=== PATIENT | female | born 1955 | race Caucasian/White ===

== ENCOUNTER → 2017-02-19 | Outpatient (CLI) | payer SELFPAY ==
[2017-02-19 09:16] LABS: ALANINE AMINOTRANSFERASE 36 U/L (9-52); ALBUMIN 4.1 g/dL (3.5-5.0); ALKALINE PHOSPHATASE 52 U/L (38-126); ANION GAP 8 (5-19); ASPARTATE AMINO TRANSFERASE 13 U/L (14-36); BILIRUBIN,DIRECT 0.4 mg/dL (0.0-0.4); BLOOD UREA NITROGEN 35 mg/dL (7-20); CALCIUM 9.3 mg/dL (8.4-10.2); CARBON DIOXIDE 28 mmol/L (22-30); CHLORIDE 105 mmol/L (98-107); CHOLESTEROL 172.06 mg/dL (0-200); CREATININE RESULT 1.31 mg/dL (0.52-1.25); Direct HDL 50 mg/dL (>40); GLUCOSE 165 mg/dL (75-110); POTASSIUM 5.5 mmol/L (3.6-5.0); SODIUM 140.8 mmol/L (137-145); TRIGLYCERIDES 163 mg/dL (<150)
[2017-02-19 09:27] LABS: DIRECT LDL 90 mg/dL (<100)
[2017-02-19 09:31] LABS: VLDL CHOLESTEROL 32.6 mg/dL (10-31)
== END ==
LOC: CCC 08:34
DX: E11.8 Type 2 diabetes mellitus with unspecified complications (principal)
CPT/HCPCS: 36415; 80053; 80061; 83036; 84443

== ENCOUNTER 2017-12-01 10:15 | Emergency (ER) | payer SELFPAY ==
[2017-12-01 10:25] VITALS: BP 147/83
[2017-12-01 10:55] LABS: APPEARANCE,URINE CLOUDY; BILIRUBIN,URINE NEGATIVE (NEGATIVE); GLUCOSE, URINE NEGATIVE (NEGATIVE); KETONES,URINE NEGATIVE (NEGATIVE); LEUKOCYTE ESTERASE,URINE LARGE (NEGATIVE); NITRITE,URINE NEGATIVE (NEGATIVE); PROTEIN,URINE 100 mg/dL (NEGATIVE); URINE SPECIFIC GRAVITY 1.018
[2017-12-01 10:56] LABS: COLOR,URINE YELLOW
[2017-12-01] MEDS ORDERED: CEFTRIAXONE INJ 1000 MG VIAL IM ONE (11:07)
[2017-12-01] MEDS ORDERED: CEPHALEXIN 500 MG CAPSULE PO ONE (11:07)
[2017-12-01] MEDS ORDERED: LIDOCAINE 1% INJ-PF (10 MG/ML) 30 ML SDV INFIL ONE (11:07)
--- NOTE | 2017-12-01 11:12 | ER Document Report ---
ED General - General Chief Complaint: Abdominal Pain >50 Stated Complaint: ABDOMINAL PAIN Time Seen by Provider: 12/01/17 10:59 TRAVEL OUTSIDE OF THE [place] 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 Patient otherwise is resting comfortably. 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 Denies any recent antibiotics. - Related Data Allergies/Adverse Reactions: No Known Allergies Allergy (Verified 12/01/17 10:20) Past Medical History - Social History Smoking Status: Former Smoker Frequency of alcohol use: Occasional Drug Abuse: None Family History: Reviewed & Not Pertinent Patient has suicidal ideation: No Patient has homicidal ideation: No - Past Medical History Cardiac Medical History: Reports: Hx Hypercholesterolemia, Hx Hypertension Denies: Hx Coronary Artery Disease Endocrine Medical History: Reports: Hx Diabetes Mellitus Type 2 Renal/ Medical History: Denies: Hx Peritoneal Dialysis Past Surgical History: Reports: Hx Section - x2, Hx Kidney (Renal Surgery) - Right nephrectomy for ruptured renal cyst - Immunizations Hx Diphtheria, Pertussis, Tetanus Vaccination: Yes Review of Systems - Review of Systems Constitutional: No symptoms reported EENT: No symptoms reported Cardiovascular: No symptoms reported Respiratory: No symptoms reported Gastrointestinal: No symptoms reported Genitourinary: Flank pain Female Genitourinary: No symptoms reported Musculoskeletal: No symptoms reported Skin: No symptoms reported Hematologic/Lymphatic: No symptoms reported Neurological/Psychological: No symptoms reported -: Yes All other systems reviewed and negative Physical Exam - Vital signs Vitals: Temp Pulse Resp BP Pulse Ox 98.5 F 79 18 147/83 H 96 12/01/17 10:24 12/01/17 10:24 12/01/17 10:24 12/01/17 10:24 12/01/17 10:24 Interpretation: Normal - General General appearance: Appears well, Alert - HEENT Head: Normocephalic, Atraumatic Eyes: Normal Pupils: PERRL - Respiratory Respiratory status: No respiratory distress Chest status: Nontender Breath sounds: Normal Chest palpation: Normal - Cardiovascular Rhythm: Regular Heart sounds: Normal auscultation Murmur: No - Abdominal Inspection: Normal Distension: No distension Bowel sounds: Normal Tenderness: Nontender Organomegaly: No organomegaly - Back Back: Normal, Nontender. No: CVA tenderness - Extremities General upper extremity: Normal inspection, Nontender, Normal color, Normal ROM , Normal temperature General lower extremity: Normal inspection, Nontender, Normal color, Normal ROM , Normal temperature, Normal weight bearing. No: Jessica's sign - Neurological Neuro grossly intact: Yes Cognition: Normal Orientation: AAOx4 [place] Coma Scale Eye Opening: Spontaneous [place] Coma Scale Verbal: Oriented [place] Coma Scale Motor: Obeys Commands [place] Coma Scale Total: 15 Speech: Normal Motor strength normal: LUE, RUE, LLE, RLE Sensory: Normal - Psychological Associated symptoms: Normal affect, Normal mood - Skin Skin Temperature: Warm Skin Moisture: Dry Skin Color: Normal Course - Re-evaluation Re-evalutation: 12/01/17 11:12 Left flank pain on examination urinalysis that showed a urinary tract infection with UTI. Treatment plan will consist of a dose of IM Rocephin along with p.o. Keflex. Urine culture will be sent. - Vital Signs Vital signs: Temp Pulse Resp BP Pulse Ox 98.5 F 79 18 147/83 H 96 12/01/17 10:24 12/01/17 10:24 12/01/17 10:24 12/01/17 10:24 12/01/17 10:24 - Laboratory Laboratory results interpreted by me: 12/01/17 10:30 Urine Protein 100 H Urine Blood LARGE H Urine Urobilinogen 2.0 H Ur Leukocyte Esterase LARGE H Discharge - Discharge Clinical Impression: UTI (urinary tract infection) Qualifiers: Urinary tract infection type: acute cystitis Hematuria presence: with hematuria Qualified Code(s): N30.01 - Acute cystitis with hematuria Diarrhea Qualifiers: Diarrhea type: unspecified type Qualified Code(s): R19.7 - Diarrhea, unspecified Condition: Good Disposition: HOME, SELF-CARE Instructions: Urinary Tract Infection ([facility]), Cephalexin ([facility]), Diarrhea, Nonspecific ([facility]) Additional Instructions: Follow-up with your primary care physician return to ER symptoms worsen take medications as prescribed. Take the Zofran is provided for any nausea that she may have for your diarrhea and increasing the amount of yogurt/ fiber in her diet. Prescriptions: Cephalexin Monohydrate [Keflex 500 mg Capsule] 500 mg PO QID 10 Days #20 capsule Referrals: [facility] [Primary Care Provider] - Follow up as needed
== END 2017-12-01 13:00 | disposition home or self-care (01) ==
LOC: ER 10:15
DX: N30.01 Acute cystitis with hematuria (principal); R19.7 Diarrhea, unspecified; R10.30 Lower abdominal pain, unspecified; E78.00 Pure hypercholesterolemia, unspecified; I10 Essential (primary) hypertension; E11.9 Type 2 diabetes mellitus without complications; Z90.5 Acquired absence of kidney
CPT/HCPCS: 99284; 96372; 81001; J3490; J0696

== ENCOUNTER 2017-12-24 21:37 | Emergency (ER) | payer SELFPAY ==
[2017-12-24] MEDS ORDERED: HYDROCODONE/ACETAMINOPHEN 7.5-325 MG TABLET PO ONE (23:30)
[2017-12-24] MEDS ORDERED: SULFAMETHOXAZOLE/TRIMETHOPRIM 800-160 MG TABLET PO ONE (23:30)
--- NOTE | 2017-12-24 23:45 | ER Document Report ---
ED Skin Rash/Insect Bite/Abscs - General Chief Complaint: Cyst Stated Complaint: SKIN PROBLEM Time Seen by Provider: 12/24/17 22:56 Mode of Arrival: Ambulatory Information source: Patient Notes: Patient has a draining abscess on her upper back. She said her primary doctor wants to send her to a surgeon to get it excised. TRAVEL OUTSIDE OF THE [place] IN LAST 30 DAYS: No - HPI Patient complains to provider of: Skin rash/lesion Onset: Other - 2 days Onset/Duration: Gradual Quality of pain: No pain Severity: Mild Pain Level: 1 Skin Character: Abscess Skin Temperature: Warm Identify cause: No Exacerbated by: Denies Relieved by: Denies Similar symptoms previously: Yes Recently seen / treated by doctor: Yes - Related Data Allergies/Adverse Reactions: No Known Allergies Allergy (Verified 12/24/17 23:22) Past Medical History - Social History Smoking Status: Never Smoker Chew tobacco use (# tins/day): No Frequency of alcohol use: None Drug Abuse: None Family History: Reviewed & Not Pertinent Patient has suicidal ideation: No Patient has homicidal ideation: No - Past Medical History Cardiac Medical History: Reports: Hx Hypercholesterolemia, Hx Hypertension Denies: Hx Coronary Artery Disease Endocrine Medical History: Reports: Hx Diabetes Mellitus Type 2 Renal/ Medical History: Denies: Hx Peritoneal Dialysis Past Surgical History: Reports: Hx Section - x2, Hx Kidney (Renal Surgery) - Right nephrectomy for ruptured renal cyst - Immunizations Hx Diphtheria, Pertussis, Tetanus Vaccination: Yes Review of Systems - Review of Systems Constitutional: No symptoms reported EENT: No symptoms reported Cardiovascular: No symptoms reported Respiratory: No symptoms reported Gastrointestinal: No symptoms reported Genitourinary: No symptoms reported Female Genitourinary: No symptoms reported Musculoskeletal: No symptoms reported Skin: Other - Draining abscess Hematologic/Lymphatic: No symptoms reported Neurological/Psychological: No symptoms reported -: Yes All other systems reviewed and negative Physical Exam - Vital signs Vitals: Temp Pulse Resp BP Pulse Ox 98.5 F 80 16 154/91 H 94 12/24/17 21:43 12/24/17 21:43 12/24/17 21:43 12/24/17 21:43 12/24/17 21:43 Interpretation: Normal - General General appearance: Appears well, Alert In distress: None - HEENT Head: Normocephalic, Atraumatic Eyes: Normal Pupils: PERRL - Respiratory Respiratory status: No respiratory distress Chest status: Nontender Breath sounds: Normal Chest palpation: Normal - Cardiovascular Rhythm: Regular Heart sounds: Normal auscultation Murmur: No - Abdominal Inspection: Normal Distension: No distension Bowel sounds: Normal Tenderness: Nontender Organomegaly: No organomegaly - Back Back: Normal, Nontender - Extremities General upper extremity: Normal inspection, Nontender, Normal color, Normal ROM , Normal temperature General lower extremity: Normal inspection, Nontender, Normal color, Normal ROM , Normal temperature, Normal weight bearing. No: Jessica's sign - Neurological Neuro grossly intact: Yes Cognition: Normal Orientation: AAOx4 [place] Coma Scale Eye Opening: Spontaneous Jeannette Coma Scale Verbal: Oriented Je[place] Coma Scale Motor: Obeys Commands [place] Coma Scale Total: 15 Speech: Normal Motor strength normal: LUE, RUE, LLE, RLE Sensory: Normal - Psychological Associated symptoms: Normal affect, Normal mood - Skin Skin Temperature: Warm Skin Moisture: Dry Skin Color: Normal Notes: There is a draining abscess on the thoracic portion of the spine with surrounding erythema consistent with cellulitis. There is no collection noted at this time the abscess is already open and draining. Course - Vital Signs Vital signs: Temp Pulse Resp BP Pulse Ox 98.2 F 74 16 144/90 H 97 12/25/17 00:05 12/25/17 00:05 12/25/17 00:05 12/25/17 00:05 12/25/17 00:05 - Transfer of Care Notes: 12/24/17 23:43 Abscess draining. Cellulitis. Discharge - Discharge Clinical Impression: Cellulitis of back Cellulitis Qualifiers: Site of cellulitis: trunk Site of cellulitis of trunk: back Qualified Code(s): L03.312 - Cellulitis of back [any part except buttock] Condition: Stable Disposition: HOME, SELF-CARE Instructions: Cellulitis ([facility]) Additional Instructions: Please follow-up with your primary doctor tomorrow morning for referral to a surgeon of your choice for this is to be excised as an outpatient. You have been started on antibiotics and pain medicine please take your medications as prescribed. Return to the emergency room if your condition worsens. Prescriptions: Hydrocodone/Acetaminophen [[place] 7.5-325 mg Tablet] 1 tab PO BID PRN #15 tablet PRN Reason: Pain Scale Of 4 Ibuprofen 800 mg PO TID PRN #20 tablet PRN Reason: Pain Scale Of 2 Ondansetron [Zofran Odt 4 mg Tablet] 1 - 2 tab PO Q6H PRN #20 tab.rapdis PRN Reason: For Nausea/Vomiting Sulfamethoxazole/Trimethoprim [Bactrim Ds Tablet] 2 each PO BID #40 tablet Forms: Return to Work Referrals: VIKAS GALARZA MD [Primary Care Provider] - Follow up as needed
[2017-12-25 00:13] VITALS: BP 144/90
== END 2017-12-25 00:05 | disposition home or self-care (01) ==
LOC: ER 21:37
DX: L02.212 Cutaneous abscess of back [any part, except buttock and flank] (principal); L03.312 Cellulitis of back [any part except buttock and flank]; R21 Rash and other nonspecific skin eruption; I10 Essential (primary) hypertension; E11.9 Type 2 diabetes mellitus without complications
CPT/HCPCS: 87070; 87075; 87186; 87205; 99283

== ENCOUNTER → 2018-03-19 | Outpatient (CLI) | payer SELFPAY ==
[2018-03-19 08:48] LABS: ANION GAP 6 (5-19); BLOOD UREA NITROGEN 20 mg/dL (7-20); CARBON DIOXIDE 27 mmol/L (22-30); CHLORIDE 106 mmol/L (98-107); GLUCOSE 229 mg/dL (75-110); POTASSIUM 5.2 mmol/L (3.6-5.0); SODIUM 138.9 mmol/L (137-145)
[2018-03-20 11:41] LABS: CREATININE URINE 147.9 mg/dL (Not Estab.); MICROALBUMIN URINE 19.3 ug/mL (Not Estab.)
[2018-03-22 18:26] LABS: URINE CREATININE 112.4 mg/dL (15-278)
[2018-03-22 18:32] LABS: 24 HR URINE CREAT RESULT 1.6 mg/day (0.8-2.0)
== END ==
LOC: CCC 07:50
DX: E11.8 Type 2 diabetes mellitus with unspecified complications (principal); I10 Essential (primary) hypertension
CPT/HCPCS: 36415; 80048; 82043; 82570

== ENCOUNTER 2018-04-25 19:58 | Inpatient (IN) | payer OTHER ==
[2018-04-25] MEDS ORDERED: IPRATROPIUM/ALBUTEROL 0.5-2.5 MG/3 ML AMPUL NEB ONE (20:31)
[2018-04-25] MEDS ORDERED: CARVEDILOL 12.5 MG TABLET PO ONE (20:31)
--- NOTE | 2018-04-25 20:37 | ER Document Report ---
ED Flu Like - General Chief Complaint: Flu Symptoms Stated Complaint: POSSIBLE FLU Time Seen by Provider: 04/25/18 20:22 Primary Care Provider: [facility] [Primary Care Provider] - Follow up as needed TRAVEL OUTSIDE OF THE [place] IN LAST 30 DAYS: No - HPI Notes: Patient is a 63-year-old female that presents to the emergency department for chief complaint of flulike symptoms. Patient reports 5 days of sinus congestion, cough, body aches, malaise and fevers. She has been taking [id number] cold medications and decongestants with no relief. She did not get a influenza vaccine this year. She states she is becoming more short of breath. She denies any associated chest pain, palpitations and lightheadedness. Patient has taken her morning medications today but not her evening medications. Her cold medicine did include decongestants. Patient denies any nausea, vomiting and abdominal pain. Past Medical History: Diabetes, hypertension Past Surgical History: x2 Social History: Denies tobacco, alcohol, and drug use Family History: Reviewed and noncontributory for presenting illness Allergies: Reviewed, see documented allergy list. REVIEW OF SYSTEMS: CONSTITUTIONAL : fever chills diaphoresis No recent illness EENT: No vision changes congestion No sore throat CARDIOVASCULAR: No chest pain No palpitations RESPIRATORY: shortness of breath cough difficulty breathing GASTROINTESTINAL: No abdominal pain No nausea No vomiting No diarrhea GENITOURINARY: No dysuria No hematuria No difficulty urinating MUSCULOSKELETAL: No back pain Diffuse myalgias SKIN: No rashes No lesions LYMPHATIC: No swollen, enlarged glands. NEUROLOGICAL: No lightheadedness No headache No weakness No paresthesias PSYCHIATRIC: No anxiety No depression PHYSICAL EXAMINATION: Vital signs reviewed, nursing noted reviewed. GENERAL: Ill-appearing, obese and in no acute distress. HEAD: Atraumatic, normocephalic. EYES: Eyes appear normal, extraocular movements intact, sclera anicteric, conjunctiva are normal. ENT: nares patent, oropharynx clear without exudates. Mildly dry mucous membranes. NECK: Normal range of motion, supple without lymphadenopathy LUNGS: Breath sounds diminished with left basilar end expiratory wheezing to auscultation. No accessory muscle use. Mild tachypnea. HEART: Regular rate and rhythm without murmurs ABDOMEN: Soft, nontender, normoactive bowel sounds. No rebound, guarding, or rigidity. No masses appreciated. EXTREMITIES: Nontender, good range of motion, no pitting or edema. NEUROLOGICAL: No focal neurological deficits. Moves all extremities spontaneousl y Motor and sensory grossly intact on exam. PSYCH: Normal mood, normal affect. SKIN: Warm, Dry, normal turgor, no rashes or lesions noted on exposed skin - Related Data Allergies/Adverse Reactions: No Known Allergies Allergy (Verified 12/24/17 23:22) Past Medical History - Social History Smoking Status: Never Smoker Family History: Reviewed & Not Pertinent - Past Medical History Cardiac Medical History: Reports: Hx Hypercholesterolemia, Hx Hypertension Denies: Hx Coronary Artery Disease Endocrine Medical History: Reports: Hx Diabetes Mellitus Type 2 Renal/ Medical History: Denies: Hx Peritoneal Dialysis Past Surgical History: Reports: Hx Section - x2, Hx Kidney (Renal Surgery) - Right nephrectomy for ruptured renal cyst - Immunizations Hx Diphtheria, Pertussis, Tetanus Vaccination: Yes Physical Exam - Vital signs Vitals: Temp Pulse Resp BP Pulse Ox 99.1 F 86 21 H 170/117 H 92 04/25/18 20:12 04/25/18 20:12 04/25/18 20:12 04/25/18 20:12 04/25/18 20:12 Course - Re-evaluation Re-evalutation: 04/25/18 20:37 Vitals reviewed. Nursing notes reviewed. Patient was oxygenating at 90% on room air and was mildly tachypneic with no accessory muscle use. She was placed on 2 L nasal cannula and given DuoNeb for her shortness of breath. Patient was hypertensive likely related to not taking her evening blood pressure medications and use of [id number]-[id number] decongestants. She will be given her home evening carvedilol dose now. 04/25/18 22:12 Patient reevaluated after aerosols and states she feels significantly better. Her breathing has improved and she is no longer tachypneic. Patient's blood pressure has also improved after her night medications and she is now 197/90. Patient has been on 2 L nasal cannula for oxygen saturation in the low 90s. She will be ambulated on room air to further assess her oxygen requirement. Laboratory 04/25/18 04/25/18 04/25/18 20:35 20:35 20:35 WBC 3.8 L RBC 4.33 Hgb 13.2 Hct 38.6 MCV 89 MCH 30.4 MCHC 34.1 RDW 13.4 Plt Count 194 Seg Neutrophils % 70.0 Lymphocytes % 17.1 Monocytes % 8.1 Eosinophils % 4.4 Basophils % 0.4 Absolute Neutrophils 2.7 Absolute Lymphocytes 0.7 Absolute Monocytes 0.3 Absolute Eosinophils 0.2 Absolute Basophils 0.0 Sodium 141.1 Potassium 5.1 H Chloride 105 Carbon Dioxide 26 Anion Gap 10 BUN 23 H Creatinine 0.92 Est GFR ( Amer) > 60 Est GFR (Non-Af Amer) > 60 Glucose 249 H Calcium 9.1 Total Bilirubin 1.2 Direct Bilirubin 0.5 H Neonat Total Bilirubin Not Reportable Neonat Direct Bilirubin Not Reportable Neonat Indirect Bili Not Reportable AST 21 ALT 18 Alkaline Phosphatase 80 Troponin I < 0.012 Total Protein 7.0 Albumin 4.1 Influenza A (Rapid) Influenza B (Rapid) 04/25/18 21:00 WBC RBC Hgb Hct MCV MCH MCHC RDW Plt Count Seg Neutrophils % Lymphocytes % Monocytes % Eosinophils % Basophils % Absolute Neutrophils Absolute Lymphocytes Absolute Monocytes Absolute Eosinophils Absolute Basophils Sodium Potassium Chloride Carbon Dioxide Anion Gap BUN Creatinine Est GFR ( Amer) Est GFR (Non-Af Amer) Glucose Calcium Total Bilirubin Direct Bilirubin Neonat Total Bilirubin Neonat Direct Bilirubin Neonat Indirect Bili AST ALT Alkaline Phosphatase Troponin I Total Protein Albumin Influenza A (Rapid) NEGATIVE Influenza B (Rapid) NEGATIVE 04/25/18 22:24 When patient was ambulated on room air the highest pulse ox she had was 88%. She got as low as 85%. Patient did become significantly dyspneic. When she sat down and was placed back on 2 L nasal cannula she quickly improved to an oxygen saturation of 95%. Patient is requiring oxygen and will be admitted to the hospital for antibiotics and further monitoring of her acute community-acquired pneumonia. Patient's case discussed with Dr. Osei who has accepted admission. - Vital Signs Vital signs: Temp Pulse Resp BP Pulse Ox 99.1 F 86 20 191/84 H 96 04/25/18 20:12 04/25/18 20:12 04/25/18 21:56 04/25/18 21:56 04/25/18 21:56 - Laboratory Result Diagrams: 04/25/18 20:35 04/25/18 20:35 Laboratory results interpreted by me: 04/25/18 04/25/18 20:35 20:35 WBC 3.8 L Potassium 5.1 H BUN 23 H Glucose 249 H Direct Bilirubin 0.5 H - Diagnostic Test Radiology reviewed: Image reviewed, Reports reviewed - EKG Interpretation by Me Additional EKG results interpreted by me: 04/25/18 20:42 Interpreted by myself 2038: Normal sinus rhythm, rate 85, normal axis, no ectopy, no significant change compared to 09/07/14 Discharge - Discharge Clinical Impression: Community acquired pneumonia of right lower lobe of lung, Hypoxia Condition: Stable Disposition: ADMITTED INPATIENT Admitting Provider: Hospitalist Unit Admitted: Telemetry Referrals: [facility] [Primary Care Provider] - Follow up as needed
[2018-04-25 20:47] LABS: ABSOLUTE EOSINOPHILS # (AUTO) 0.2 10^3/uL (0.0-0.6); ABSOLUTE LYMPHOCYTES (AUTO) 0.7 10^3/uL (0.5-4.7); ABSOLUTE MONOCYTES (AUTO) 0.3 10^3/uL (0.1-1.4); ABSOLUTE NEUT (AUTO) 2.7 10^3/uL (1.7-8.2); BASOPHILS % (AUTO) 0.4 % (0-2); EOSINOPHILS % (AUTO) 4.4 % (0-6); HEMATOCRIT 38.6 % (36.0-47.0); HEMOGLOBIN 13.2 g/dL (12.0-15.5); LYMPHOCYTES % (AUTO) 17.1 % (13-45); MEAN CORPUSCULAR HEMOGLOBIN 30.4 pg (27.0-33.4); MEAN CORPUSCULAR HGB CONC 34.1 g/dL (32.0-36.0); MEAN CORPUSCULAR VOLUME 89 fl (80-97); MONOCYTES % (AUTO) 8.1 % (3-13); PLATELET COUNT 194 10^3/uL (150-450); RED BLOOD COUNT 4.33 10^6/uL (3.72-5.28); RED CELL DISTRIBUTION WIDTH 13.4 % (11.5-14.0); TOTAL CELLS COUNTED % (AUTO) 100 %; WHITE BLOOD COUNT 3.8 10^3/uL (4.0-10.5)
[2018-04-25 21:03] LABS: ALANINE AMINOTRANSFERASE 18 U/L (9-52); ALBUMIN 4.1 g/dL (3.5-5.0); ALKALINE PHOSPHATASE 80 U/L (38-126); ANION GAP 10 (5-19); ASPARTATE AMINO TRANSFERASE 21 U/L (14-36); BILIRUBIN,DIRECT 0.5 mg/dL (0.0-0.4); BILIRUBIN,TOTAL 1.2 mg/dL (0.2-1.3); BLOOD UREA NITROGEN 23 mg/dL (7-20); CALCIUM 9.1 mg/dL (8.4-10.2); CARBON DIOXIDE 26 mmol/L (22-30); CHLORIDE 105 mmol/L (98-107); GLUCOSE 249 mg/dL (75-110); POTASSIUM 5.1 mmol/L (3.6-5.0); SODIUM 141.1 mmol/L (137-145)
[2018-04-25 21:22] LABS: A TYPE INFLUENZA AG NEGATIVE (NEGATIVE); B INFLUENZA AG NEGATIVE (NEGATIVE)
--- NOTE | 2018-04-25 21:27 | RADIOLOGY REPORT (SQ) ---
XR CHEST 1 VIEW HISTORY: COUGH. COMPARISON: None. FINDINGS: The heart size is normal. There is a patchy opacity in the right lower lung zone. No pleural effusions or pneumothorax is seen. No acute bony findings. IMPRESSION: Right lower lung zone patchy opacity consistent with pneumonia.
[2018-04-25] MEDS ORDERED: CARVEDILOL 6.25 MG TABLET ONE (21:35)
[2018-04-25] MEDS ORDERED: AZITHROMYCIN 250 MG TABLET PO ONE (22:08)
[2018-04-25] MEDS ORDERED: CEFTRIAXONE INJ 1000 MG VIAL IV ONE (22:20)
[2018-04-25] MEDS ORDERED: AZITHROMYCIN INJ 500 MG VIAL IV ONE (22:20)
[2018-04-25] MEDS ORDERED: LACTULOSE SYRUP 20 GM/30 ML UDCUP PO ONE (22:24)
[2018-04-25] MEDS ORDERED: FUROSEMIDE INJ/PF 40 MG/4 ML SDV IV ONE (22:24)
[2018-04-25] MEDS ORDERED: CHLORPHENIRAMINE MALEATE 4 MG TABLET PO ONE (22:25)
[2018-04-25] MEDS ORDERED: DEXTROSE 50%-WATER 25 GM/50 ML DISP.SYRIN IV PRN ×2 (22:26)
[2018-04-25] MEDS ORDERED: DEXTROSE 40% GEL 15 GM TUBE PO PRN ×2 (22:26)
[2018-04-25] MEDS ORDERED: GLUCAGON,HUMAN RECOMB 1 MG INJ IM PRN (22:26)
[2018-04-25] MEDS ORDERED: IPRATROPIUM/ALBUTEROL 0.5-2.5 MG/3 ML AMPUL NEB PRN (22:27)
[2018-04-25] MEDS ORDERED: GUAIFENESIN SYRP 200 MG/10 ML UDC PO PRN (22:27)
[2018-04-25] MEDS ORDERED: INSULIN LISPRO 100 UNIT/ML 3 ML VIAL SUBCUT ONE (22:45)
[2018-04-25] MEDS ORDERED: LEVOFLOXACIN 750 MG/D5W RTU 750 MG/150 ML RTUPB IV ONE (23:00)
[2018-04-26] MEDS: HYDRALAZINE HCL INJ/PF 20 MG/1 ML SDV IV PRN ×2 (00:05→07:59)
[2018-04-26] MEDS: ACETAMINOPHEN 325 MG TABLET PO PRN ×3 (02:05→21:29)
[2018-04-26] MEDS ORDERED: CHLORPHENIRAMINE MALEATE 4 MG TABLET ONE (02:18)
[2018-04-26] MEDS: IPRATROPIUM/ALBUTEROL 0.5-2.5 MG/3 ML AMPUL NEB SCH ×4 (02:49→19:30)
[2018-04-26 05:07] LABS: ABSOLUTE EOSINOPHILS # (AUTO) 0.1 10^3/uL (0.0-0.6); ABSOLUTE LYMPHOCYTES (AUTO) 0.7 10^3/uL (0.5-4.7); ABSOLUTE MONOCYTES (AUTO) 0.3 10^3/uL (0.1-1.4); ABSOLUTE NEUT (AUTO) 2.6 10^3/uL (1.7-8.2); BASOPHILS % (AUTO) 0.4 % (0-2); EOSINOPHILS % (AUTO) 2.1 % (0-6); HEMOGLOBIN 12.5 g/dL (12.0-15.5); LYMPHOCYTES % (AUTO) 18.9 % (13-45); MEAN CORPUSCULAR HEMOGLOBIN 30.2 pg (27.0-33.4); MEAN CORPUSCULAR HGB CONC 33.9 g/dL (32.0-36.0); MEAN CORPUSCULAR VOLUME 89 fl (80-97); MONOCYTES % (AUTO) 8.2 % (3-13); PLATELET COUNT 187 10^3/uL (150-450); RED BLOOD COUNT 4.14 10^6/uL (3.72-5.28); RED CELL DISTRIBUTION WIDTH 13.3 % (11.5-14.0); SEGMENTED NEUTROPHILS % (AUTO) 70.4 % (42-78); TOTAL CELLS COUNTED % (AUTO) 100 %; WHITE BLOOD COUNT 3.7 10^3/uL (4.0-10.5)
[2018-04-26 05:19] LABS: ANION GAP 13 (5-19); BLOOD UREA NITROGEN 23 mg/dL (7-20); CALCIUM 9.1 mg/dL (8.4-10.2); CARBON DIOXIDE 25 mmol/L (22-30); CHLORIDE 101 mmol/L (98-107); GLUCOSE 308 mg/dL (75-110); POTASSIUM 4.6 mmol/L (3.6-5.0); SODIUM 139.3 mmol/L (137-145)
--- NOTE | 2018-04-26 05:24 | PDOC H&P ---
History of Present Illness Admission Date/PCP: 04/25/18 22:42 [facility] Patient complains of: Flulike symptoms History of Present Illness: RUDDY RIBEIRO is a 63 year old female with a past medical history of hypertension, diabetes and morbid obesity. She presents with 5 days of flulike symptoms with rhinorrhea, sore throat, subjective fever, shortness of breath and productive cough. She has taken several wjnn-ihy-wrrssbt preparations including pseudoephedrine without significant improvement prompting evaluation in the emergency department where she is found to have a right lower lung infiltrate and uncontrolled blood pressure of 190/115. Influenza is negative. She started on empiric antibiotics and referred to the hospitalist for admission. Patient denies recent change in medications other than above or infectious contacts. Past Medical History Cardiac Medical History: Reports: Hyperlipidema, Hypertension Denies: Coronary Artery Disease Endocrine Medical History: Reports: Diabetes Mellitus Type 2, Obesity Psychiatric Medical History: Denies: Alcohol Dependency, Depression, Tobacco Dependency Past Surgical History Past Surgical History: Reports: Section - x2 Social History Information Source: Patient Smoking Status: Former Smoker Cigarettes Packs Per Day: 1 Frequency of Alcohol Use: None Hx Recreational Drug Use: No Drugs: None Hx Prescription Drug Abuse: No - Advance Directive Resuscitation Status: Full Code Family History Family History: Hypertension Parental Family History Reviewed: Yes Children Family History Reviewed: Yes Sibling(s) Family History Reviewed.: Yes Medication/Allergy Home Medications: Ibuprofen 800 mg PO TID PRN #20 tablet 12/24/17 Carvedilol 25 mg PO BID 04/26/18 Gabapentin [Neurontin 300 mg Capsule] 300 mg PO TID 04/26/18 Hum Insulin NPH/Reg Insulin Hm [Insulin Inj 70-30 (100 Unit/1 ml) 3 ml Vial] 25 unit SUBCUT BID 04/26/18 Levothyroxine Sodium [Synthroid 0.05 mg Tablet] 50 mcg PO DAILY 04/26/18 Lisinopril 20 mg PO BID 04/26/18 Metformin HCl 500 mg PO BID 04/26/18 Allergies/Adverse Reactions: No Known Allergies Allergy (Verified 12/24/17 23:22) Review of Systems Constitutional: ABSENT: chills, fever(s), headache(s), weight gain, weight loss Eyes: ABSENT: visual disturbances Ears: ABSENT: hearing changes Cardiovascular: ABSENT: chest pain, dyspnea on exertion, edema, orthropnea, palpitations Respiratory: ABSENT: cough, hemoptysis Gastrointestinal: ABSENT: abdominal pain, constipation, diarrhea, hematemesis, hematochezia, nausea, vomiting Genitourinary: ABSENT: dysuria, hematuria Musculoskeletal: ABSENT: joint swelling Integumentary: ABSENT: rash, wounds Neurological: ABSENT: abnormal gait, abnormal speech, confusion, dizziness, focal weakness, syncope Psychiatric: ABSENT: anxiety, depression, homidical ideation, suicidal ideation Endocrine: ABSENT: cold intolerance, heat intolerance, polydipsia, polyuria Hematologic/Lymphatic: ABSENT: easy bleeding, easy bruising Physical Exam Vital Signs: Temp Pulse Resp BP Pulse Ox 98.2 F 85 24 H 142/79 H 96 04/26/18 03:54 04/26/18 03:54 04/26/18 03:54 04/26/18 03:54 04/26/18 03:54 Intake & Output 04/24/18 04/25/18 04/26/18 11:59 11:59 11:59 Intake Total 150 Balance 150 Weight 141.6 kg General appearance: PRESENT: cooperative, mild distress, morbidly obese. ABSENT: disheveled Head exam: PRESENT: atraumatic, normocephalic Eye exam: PRESENT: conjunctiva pink, EOMI, PERRLA. ABSENT: scleral icterus Ear exam: PRESENT: normal external ear exam Mouth exam: PRESENT: moist, tongue midline Neck exam: ABSENT: carotid bruit, JVD, lymphadenopathy, thyromegaly Respiratory exam: PRESENT: accessory muscle use, crackles, prolonged expiratory phas, rales, retraction, symmetrical, tachypnea, wheezes Cardiovascular exam: PRESENT: RRR, tachycardia. ABSENT: diastolic murmur, rubs, systolic murmur Pulses: PRESENT: normal dorsalis pedis pul Vascular exam: PRESENT: normal capillary refill GI/Abdominal exam: PRESENT: normal bowel sounds, soft. ABSENT: distended, guarding, mass, organolmegaly, rebound, tenderness Rectal exam: PRESENT: deferred Extremities exam: PRESENT: full ROM. ABSENT: calf tenderness, clubbing, pedal edema Neurological exam: PRESENT: alert, awake, oriented to person, oriented to place, oriented to time, oriented to situation, CN II-XII grossly intact. ABSENT: motor sensory deficit Psychiatric exam: PRESENT: appropriate affect, normal mood. ABSENT: homicidal ideation, suicidal ideation Skin exam: PRESENT: dry, intact, warm. ABSENT: cyanosis, rash Results Laboratory Results: 04/26/18 04:07 04/25/18 04/25/18 04/25/18 20:35 20:35 23:00 WBC 3.8 L RBC 4.33 Hgb 13.2 Hct 38.6 MCV 89 MCH 30.4 MCHC 34.1 RDW 13.4 Plt Count 194 Seg Neutrophils % 70.0 Lymphocytes % 17.1 Monocytes % 8.1 Eosinophils % 4.4 Basophils % 0.4 Absolute Neutrophils 2.7 Absolute Lymphocytes 0.7 Absolute Monocytes 0.3 Absolute Eosinophils 0.2 Absolute Basophils 0.0 Sodium 141.1 Potassium 5.1 H Chloride 105 Carbon Dioxide 26 Anion Gap 10 BUN 23 H Creatinine 0.92 Est GFR ( Amer) > 60 Est GFR (Non-Af Amer) > 60 Glucose 249 H Lactic Acid 1.0 Calcium 9.1 Total Bilirubin 1.2 AST 21 ALT 18 Alkaline Phosphatase 80 Total Protein 7.0 Albumin 4.1 04/26/18 04:07 WBC 3.7 L RBC 4.14 Hgb 12.5 Hct 37.0 MCV 89 MCH 30.2 MCHC 33.9 RDW 13.3 Plt Count 187 Seg Neutrophils % 70.4 Lymphocytes % 18.9 Monocytes % 8.2 Eosinophils % 2.1 Basophils % 0.4 Absolute Neutrophils 2.6 Absolute Lymphocytes 0.7 Absolute Monocytes 0.3 Absolute Eosinophils 0.1 Absolute Basophils 0.0 Sodium Potassium Chloride Carbon Dioxide Anion Gap BUN Creatinine Est GFR ( Amer) Est GFR (Non-Af Amer) Glucose Lactic Acid Calcium Total Bilirubin AST ALT Alkaline Phosphatase Total Protein Albumin 04/25/18 04/25/18 20:35 20:35 Troponin I < 0.012 NT-Pro-B Natriuret Pep 308 Assessment & Plan - Diagnosis (1) Community acquired pneumonia of right lower lobe of lung Is this a current diagnosis for this admission?: Yes Plan: Pneumonia care set deployed, empiric antibiotics initiated, flutter valve, incentive spirometry and BiPAP as needed. Follow-up CBC and blood culture (2) Hypertension Is this a current diagnosis for this admission?: Yes Plan: Complicated by pseudoephedrine use, follow-up BNP, home regiment initiated PRN hydralazine (3) Hypoxia Is this a current diagnosis for this admission?: Yes Plan: Supplemental oxygen, albuterol and Atrovent, BiPAP as needed (4) Diabetes Is this a current diagnosis for this admission?: Yes Plan: Medication reconciliation pending, Humalog sliding scale ordered. - Time Time Spent: 50 to 70 Minutes - Inpatient Certification Medical Necessity: Need Close Monitoring Due to Risk of Patient Decompensation
[2018-04-26] MEDS: HEPARIN SOD (PORCINE) 5,000 UNIT/ML 1 ML SYRINGE SUBCUT SCH ×3 (05:33→21:29)
[2018-04-26] MEDS: INSULIN LISPRO 100 UNIT/ML 3 ML VIAL SUBCUT SCH ×3 (08:01→17:05)
[2018-04-26] MEDS: GABAPENTIN 300 MG CAPSULE PO SCH ×3 (09:45→17:05)
[2018-04-26] MEDS: CARVEDILOL 12.5 MG TABLET PO SCH ×2 (09:45→21:29)
[2018-04-26] MEDS: LISINOPRIL 10 MG TABLET PO SCH ×2 (09:45→21:30)
[2018-04-26] MEDS: HUM INSULIN NPH/REG INSULIN HM 100 UNIT/1 ML 3 ML SUBCUT SCH ×2 (09:46→17:05)
[2018-04-26] MEDS: FLUTICASONE NASAL SPRAY 50 MCG/SPRY 120 SPRAY/16 GM NASL SCH ×2 (09:49→21:29)
[2018-04-26] MEDS ORDERED: LEVOTHYROXINE SODIUM 0.05 MG TABLET PO SCH (10:00)
--- NOTE | 2018-04-26 13:07 | EKG REPORT ---
SEVERITY:- NORMAL ECG - SINUS RHYTHM : Confirmed by: Chely Al MD 26-Apr-2018 13:07:12
--- NOTE | 2018-04-26 16:03 | PDOC PROGRESS REPORT ---
Subjective Progress Note for:: 04/26/18 Subjective:: RUDDY RIBEIRO is a 63 year old female with a past medical history of hypertension, diabetes and morbid obesity who presented with rhinorrhea, sore throat, subjective fever, shortness of breath and productive cough. She was found to have right lower lobe pneumonia and was initially hypoxic which resolved with 2L of NC in the ER. No acute event overnight. She says she still has SOB today but this has improved today. She is saturating well on 2 lpm via NC. She denies chest pain. Reason For Visit: PNEUMONIA Physical Exam Vital Signs: Temp Pulse Resp BP Pulse Ox 97.7 F 89 18 122/93 H 97 04/26/18 11:08 04/26/18 14:37 04/26/18 14:37 04/26/18 11:08 04/26/18 14:37 Intake & Output 04/25/18 04/26/18 04/27/18 06:59 06:59 06:59 Intake Total 550 418 Balance 550 418 Weight 308 lb 6.827 oz General appearance: PRESENT: no acute distress, well-developed, well-nourished Head exam: PRESENT: atraumatic, normocephalic Eye exam: PRESENT: conjunctiva pink, EOMI, PERRLA. ABSENT: scleral icterus Ear exam: PRESENT: normal external ear exam Mouth exam: PRESENT: moist, tongue midline Neck exam: ABSENT: carotid bruit, JVD, lymphadenopathy, thyromegaly Respiratory exam: PRESENT: crackles - right base. ABSENT: rales, rhonchi, wheezes Cardiovascular exam: PRESENT: RRR. ABSENT: diastolic murmur, rubs, systolic murmur Pulses: PRESENT: normal dorsalis pedis pul GI/Abdominal exam: PRESENT: normal bowel sounds, soft. ABSENT: distended, guarding, mass, organolmegaly, rebound, tenderness Rectal exam: PRESENT: deferred Extremities exam: PRESENT: +1 edema Neurological exam: PRESENT: alert, awake, oriented to person, oriented to place, oriented to time, oriented to situation, CN II-XII grossly intact. ABSENT: motor sensory deficit Results Laboratory Results: 04/26/18 04:07 04/26/18 04:07 04/25/18 04/25/18 04/25/18 20:35 20:35 23:00 WBC 3.8 L RBC 4.33 Hgb 13.2 Hct 38.6 MCV 89 MCH 30.4 MCHC 34.1 RDW 13.4 Plt Count 194 Seg Neutrophils % 70.0 Lymphocytes % 17.1 Monocytes % 8.1 Eosinophils % 4.4 Basophils % 0.4 Absolute Neutrophils 2.7 Absolute Lymphocytes 0.7 Absolute Monocytes 0.3 Absolute Eosinophils 0.2 Absolute Basophils 0.0 Sodium 141.1 Potassium 5.1 H Chloride 105 Carbon Dioxide 26 Anion Gap 10 BUN 23 H Creatinine 0.92 Est GFR ( Amer) > 60 Est GFR (Non-Af Amer) > 60 Glucose 249 H Lactic Acid 1.0 Calcium 9.1 Total Bilirubin 1.2 AST 21 ALT 18 Alkaline Phosphatase 80 Total Protein 7.0 Albumin 4.1 04/26/18 04/26/18 04:07 04:07 WBC 3.7 L RBC 4.14 Hgb 12.5 Hct 37.0 MCV 89 MCH 30.2 MCHC 33.9 RDW 13.3 Plt Count 187 Seg Neutrophils % 70.4 Lymphocytes % 18.9 Monocytes % 8.2 Eosinophils % 2.1 Basophils % 0.4 Absolute Neutrophils 2.6 Absolute Lymphocytes 0.7 Absolute Monocytes 0.3 Absolute Eosinophils 0.1 Absolute Basophils 0.0 Sodium 139.3 Potassium 4.6 Chloride 101 Carbon Dioxide 25 Anion Gap 13 BUN 23 H Creatinine 0.91 Est GFR ( Amer) > 60 Est GFR (Non-Af Amer) > 60 Glucose 308 H Lactic Acid Calcium 9.1 Total Bilirubin AST ALT Alkaline Phosphatase Total Protein Albumin 04/25/18 04/25/18 20:35 20:35 Troponin I < 0.012 NT-Pro-B Natriuret Pep 308 Assessment & Plan - Diagnosis (1) Acute respiratory failure with hypoxia Is this a current diagnosis for this admission?: Yes Plan: Secondary to right lower lobe pneumonia. Saturating well on 2 lpm via NC. Will try to see if she can be weaned off O2. (2) Community acquired pneumonia of right lower lobe of lung Is this a current diagnosis for this admission?: Yes Plan: On Levaquin. Will order sputum culture as well. (3) Hypertension Is this a current diagnosis for this admission?: Yes Plan: Will resume Coreg and lisinopril. (4) IDDM (insulin dependent diabetes mellitus) Is this a current diagnosis for this admission?: Yes Plan: Continue 70/30 25 u bid. - Time Time Spent with patient: 25-34 minutes
[2018-04-26] MEDS: LEVOFLOXACIN 750 MG/D5W RTU 750 MG/150 ML RTUPB IV SCH (21:30)
[2018-04-27] MEDS: IPRATROPIUM/ALBUTEROL 0.5-2.5 MG/3 ML AMPUL NEB SCH ×4 (01:45→20:31)
[2018-04-27 05:02] LABS: ABSOLUTE EOSINOPHILS # (AUTO) 0.1 10^3/uL (0.0-0.6); ABSOLUTE LYMPHOCYTES (AUTO) 1.1 10^3/uL (0.5-4.7); ABSOLUTE MONOCYTES (AUTO) 0.4 10^3/uL (0.1-1.4); ABSOLUTE NEUT (AUTO) 2.1 10^3/uL (1.7-8.2); BASOPHILS % (AUTO) 0.4 % (0-2); EOSINOPHILS % (AUTO) 3.6 % (0-6); HEMATOCRIT 36.9 % (36.0-47.0); HEMOGLOBIN 12.6 g/dL (12.0-15.5); LYMPHOCYTES % (AUTO) 28.5 % (13-45); MEAN CORPUSCULAR HEMOGLOBIN 30.2 pg (27.0-33.4); MEAN CORPUSCULAR HGB CONC 34.1 g/dL (32.0-36.0); MEAN CORPUSCULAR VOLUME 89 fl (80-97); MONOCYTES % (AUTO) 10.8 % (3-13); PLATELET COUNT 183 10^3/uL (150-450); RED BLOOD COUNT 4.16 10^6/uL (3.72-5.28); SEGMENTED NEUTROPHILS % (AUTO) 56.7 % (42-78); TOTAL CELLS COUNTED % (AUTO) 100 %; WHITE BLOOD COUNT 3.8 10^3/uL (4.0-10.5)
[2018-04-27 05:25] LABS: ANION GAP 11 (5-19); BLOOD UREA NITROGEN 26 mg/dL (7-20); CALCIUM 8.9 mg/dL (8.4-10.2); CARBON DIOXIDE 27 mmol/L (22-30); CHLORIDE 102 mmol/L (98-107); GLUCOSE 192 mg/dL (75-110); POTASSIUM 4.8 mmol/L (3.6-5.0); SODIUM 139.6 mmol/L (137-145)
[2018-04-27] MEDS: HEPARIN SOD (PORCINE) 5,000 UNIT/ML 1 ML SYRINGE SUBCUT SCH ×3 (05:49→21:33)
[2018-04-27] MEDS: LEVOTHYROXINE SODIUM 0.05 MG TABLET PO SCH (05:49)
[2018-04-27] MEDS: INSULIN LISPRO 100 UNIT/ML 3 ML VIAL SUBCUT SCH ×3 (07:49→16:30)
[2018-04-27] MEDS: LISINOPRIL 10 MG TABLET PO SCH ×2 (10:51→21:33)
[2018-04-27] MEDS: GABAPENTIN 300 MG CAPSULE PO SCH ×3 (10:51→17:44)
[2018-04-27] MEDS: CARVEDILOL 12.5 MG TABLET PO SCH ×2 (10:51→21:33)
[2018-04-27] MEDS: HUM INSULIN NPH/REG INSULIN HM 100 UNIT/1 ML 3 ML SUBCUT SCH ×2 (10:52→17:44)
[2018-04-27] MEDS: FLUTICASONE NASAL SPRAY 50 MCG/SPRY 120 SPRAY/16 GM NASL SCH ×2 (10:52→21:33)
--- NOTE | 2018-04-27 12:30 | PDOC PROGRESS REPORT ---
Subjective Progress Note for:: 04/27/18 Subjective:: RUDDY RIBEIRO is a 63 year old female with a past medical history of hypertension, diabetes and morbid obesity who presented with rhinorrhea, sore throat, subjective fever, shortness of breath and productive cough. She was found to have right lower lobe pneumonia and was initially hypoxic which resolved with 2L of NC in the ER. 04/26: She says she still has SOB today but this has improved today. She is saturating well on 2 lpm via NC. She denies chest pain. 04/27: No acute event overnight. She says she continues to feel better and her SOB also continue to improve but not at her baseline yet. She is not on home O2. Patient ambulated and she desaturated to 85% and had mild SOB. Reason For Visit: PNEUMONIA Physical Exam Vital Signs: Temp Pulse Resp BP Pulse Ox 98.2 F 91 18 154/105 H 94 04/27/18 11:18 04/27/18 11:18 04/27/18 11:18 04/27/18 11:18 04/27/18 11:18 Intake & Output 04/26/18 04/27/18 04/28/18 06:59 06:59 06:59 Intake Total 550 1105 Balance 550 1105 Weight 308 lb 6.827 oz 307 lb 1.663 oz General appearance: PRESENT: no acute distress, well-developed, well-nourished Head exam: PRESENT: atraumatic, normocephalic Eye exam: PRESENT: conjunctiva pink, EOMI, PERRLA. ABSENT: scleral icterus Ear exam: PRESENT: normal external ear exam Mouth exam: PRESENT: moist, tongue midline Neck exam: ABSENT: carotid bruit, JVD, lymphadenopathy, thyromegaly Respiratory exam: PRESENT: rales - right base, rhonchi. ABSENT: wheezes Cardiovascular exam: PRESENT: RRR. ABSENT: diastolic murmur, rubs, systolic murmur Pulses: PRESENT: normal dorsalis pedis pul GI/Abdominal exam: PRESENT: normal bowel sounds, soft. ABSENT: distended, guarding, mass, organolmegaly, rebound, tenderness Rectal exam: PRESENT: deferred Neurological exam: PRESENT: alert, awake, oriented to person, oriented to place, oriented to time, oriented to situation, CN II-XII grossly intact. ABSENT: motor sensory deficit Results Laboratory Results: 04/27/18 03:39 04/27/18 03:39 04/27/18 04/27/18 03:39 03:39 WBC 3.8 L RBC 4.16 Hgb 12.6 Hct 36.9 MCV 89 MCH 30.2 MCHC 34.1 RDW 13.0 Plt Count 183 Seg Neutrophils % 56.7 Lymphocytes % 28.5 Monocytes % 10.8 Eosinophils % 3.6 Basophils % 0.4 Absolute Neutrophils 2.1 Absolute Lymphocytes 1.1 Absolute Monocytes 0.4 Absolute Eosinophils 0.1 Absolute Basophils 0.0 Sodium 139.6 Potassium 4.8 Chloride 102 Carbon Dioxide 27 Anion Gap 11 BUN 26 H Creatinine 0.98 Est GFR ( Amer) > 60 Est GFR (Non-Af Amer) 58 L Glucose 192 H Calcium 8.9 04/25/18 04/25/18 20:35 20:35 Troponin I < 0.012 NT-Pro-B Natriuret Pep 308 Assessment & Plan - Diagnosis (1) Acute respiratory failure with hypoxia Is this a current diagnosis for this admission?: Yes Plan: 04/26: Secondary to right lower lobe pneumonia. Saturating well on 2 lpm via NC. Will try to see if she can be weaned off O2. 04/27: Improving. She is not on home O2. Patient ambulated and she desaturated to 85% and had mild SOB. (2) Community acquired pneumonia of right lower lobe of lung Is this a current diagnosis for this admission?: Yes Plan: Continue Levaquin. Sputum culture negative so far. (3) Hypertension Is this a current diagnosis for this admission?: Yes Plan: Continue Coreg and lisinopril. If blood pressures continue to be elevated, will add amlodipine 5 mg daily. (4) IDDM (insulin dependent diabetes mellitus) Is this a current diagnosis for this admission?: Yes Plan: Blood sugars at goal. Continue 70/30 25 u bid. - Time Time Spent with patient: 15-24 minutes
[2018-04-27] MEDS ORDERED: SODIUM CHLORIDE NASAL SPRAY 44 ML NASL PRN (13:05)
[2018-04-27] MEDS: DOCUSATE SODIUM 100 MG CAPSULE PO SCH (16:18)
[2018-04-27] MEDS: LEVOFLOXACIN 750 MG/D5W RTU 750 MG/150 ML RTUPB IV SCH (21:33)
[2018-04-28] MEDS: IPRATROPIUM/ALBUTEROL 0.5-2.5 MG/3 ML AMPUL NEB SCH ×3 (02:04→13:27)
[2018-04-28] MEDS: HEPARIN SOD (PORCINE) 5,000 UNIT/ML 1 ML SYRINGE SUBCUT SCH ×2 (05:20→13:46)
[2018-04-28] MEDS: LEVOTHYROXINE SODIUM 0.05 MG TABLET PO SCH (05:20)
[2018-04-28 05:26] LABS: ABSOLUTE EOSINOPHILS # (AUTO) 0.2 10^3/uL (0.0-0.6); ABSOLUTE LYMPHOCYTES (AUTO) 1.3 10^3/uL (0.5-4.7); ABSOLUTE MONOCYTES (AUTO) 0.5 10^3/uL (0.1-1.4); ABSOLUTE NEUT (AUTO) 2.5 10^3/uL (1.7-8.2); BASOPHILS % (AUTO) 0.7 % (0-2); EOSINOPHILS % (AUTO) 4.2 % (0-6); HEMATOCRIT 37.6 % (36.0-47.0); HEMOGLOBIN 12.8 g/dL (12.0-15.5); LYMPHOCYTES % (AUTO) 29.3 % (13-45); MEAN CORPUSCULAR HEMOGLOBIN 30.1 pg (27.0-33.4); MEAN CORPUSCULAR HGB CONC 33.9 g/dL (32.0-36.0); MEAN CORPUSCULAR VOLUME 89 fl (80-97); MONOCYTES % (AUTO) 10.5 % (3-13); PLATELET COUNT 203 10^3/uL (150-450); RED BLOOD COUNT 4.25 10^6/uL (3.72-5.28); RED CELL DISTRIBUTION WIDTH 13.3 % (11.5-14.0); SEGMENTED NEUTROPHILS % (AUTO) 55.3 % (42-78); TOTAL CELLS COUNTED % (AUTO) 100 %; WHITE BLOOD COUNT 4.6 10^3/uL (4.0-10.5)
[2018-04-28 05:40] LABS: ANION GAP 10 (5-19); BLOOD UREA NITROGEN 40 mg/dL (7-20); CARBON DIOXIDE 25 mmol/L (22-30); CHLORIDE 105 mmol/L (98-107); GLUCOSE 172 mg/dL (75-110); SODIUM 139.9 mmol/L (137-145)
[2018-04-28] MEDS: INSULIN LISPRO 100 UNIT/ML 3 ML VIAL SUBCUT SCH ×2 (07:36→11:53)
[2018-04-28] MEDS: ACETAMINOPHEN 325 MG TABLET PO PRN (07:37)
[2018-04-28] MEDS: GABAPENTIN 300 MG CAPSULE PO SCH ×2 (10:14→13:46)
[2018-04-28] MEDS: LISINOPRIL 10 MG TABLET PO SCH (10:14)
[2018-04-28] MEDS: DOCUSATE SODIUM 100 MG CAPSULE PO SCH (10:14)
[2018-04-28] MEDS: FLUTICASONE NASAL SPRAY 50 MCG/SPRY 120 SPRAY/16 GM NASL SCH (10:14)
[2018-04-28] MEDS: CARVEDILOL 12.5 MG TABLET PO SCH (10:14)
[2018-04-28] MEDS: HUM INSULIN NPH/REG INSULIN HM 100 UNIT/1 ML 3 ML SUBCUT SCH (10:15)
[2018-04-28 11:56] VITALS: BP 125/62
[2018-04-28] MEDS ORDERED: LEVOFLOXACIN 750 MG TABLET PO SCH (22:00)
[2018-04-28 23:36] LABS: INFLUENZA A AB (SERUM) CF Negative (Neg:<1:8)
[2018-04-29 07:06] LABS: INFLUENZA B AB (SERUM) CF 1:16 (Neg:<1:8)
--- NOTE | 2018-04-29 15:36 | PDOC DISCHARGE SUMMARY ---
General - Admit/Disc Date/PCP Admission Date/Primary Care Provider: 04/25/18 22:42 [facility] Discharge Date: 04/28/18 - Discharge Diagnosis (1) Acute respiratory failure with hypoxia Is this a current diagnosis for this admission?: Yes (2) Community acquired pneumonia of right lower lobe of lung Is this a current diagnosis for this admission?: Yes (3) Hypertension Is this a current diagnosis for this admission?: Yes (4) IDDM (insulin dependent diabetes mellitus) Is this a current diagnosis for this admission?: Yes - Additional Information Resuscitation Status: Full Code Discharge Diet: As Tolerated Discharge Activity: Activity As Tolerated Prescriptions: Levofloxacin [Levaquin 750 mg Tablet] 750 mg PO QHS 4 Days #4 tablet Home Medications: Carvedilol 25 mg PO BID 04/26/18 Gabapentin [Neurontin 300 mg Capsule] 300 mg PO TID 04/26/18 Insulin Aspart Protam & Aspart [Novolog Mix 70-30 Vial] 25 unit SQ BID 04/26/18 Levothyroxine Sodium [Synthroid 0.05 mg Tablet] 0.05 mg PO QAM 04/26/18 Lisinopril 20 mg PO BID 04/26/18 Metformin HCl 500 mg PO BID 04/26/18 Levofloxacin [Levaquin 750 mg Tablet] 750 mg PO QHS 4 Days #4 tablet 04/28/18 History of Present Illness History of Present Illness: RUDDY RIBEIRO is a 63 year old female with a past medical history of hyperte nsion, diabetes and morbid obesity who presented with rhinorrhea, sore throat, subjective fever, shortness of breath and productive cough. She was found to have right lower lobe pneumonia and was initially hypoxic which resolved with 2L of NC in the ER. Hospital Course Hospital Course: (1) Acute respiratory failure with hypoxia Secondary to right lower lobe pneumonia. Saturating well on 2 lpm via NC. She is not on home O2. Patient ambulated and she desaturated to 88%. Was discharged home with Home O2. (2) Community acquired pneumonia of right lower lobe of lung Continued Levaquin to complete 5 days. Cultures remained negative. (3) Hypertension Controlled. Continue Coreg and lisinopril. (4) IDDM (insulin dependent diabetes mellitus) Blood sugars at goal. Continue 70/30 25 u bid. Physical Exam Vital Signs: Temp Pulse Resp BP Pulse Ox 98.7 F 78 18 125/62 100 02/19/19 14:39 04/28/18 14:39 04/28/18 14:39 04/28/18 14:39 04/28/18 14:39 Intake & Output 04/28/18 04/29/18 04/30/18 06:59 06:59 06:59 Intake Total 1050 Balance 1050 Weight 139.3 kg General appearance: PRESENT: no acute distress, well-developed, well-nourished Head exam: PRESENT: atraumatic, normocephalic Eye exam: PRESENT: conjunctiva pink, EOMI, PERRLA. ABSENT: scleral icterus Ear exam: PRESENT: normal external ear exam Mouth exam: PRESENT: moist, tongue midline Neck exam: ABSENT: carotid bruit, JVD, lymphadenopathy, thyromegaly Respiratory exam: PRESENT: clear to auscultation maria elena. ABSENT: rales, rhonchi, wheezes Cardiovascular exam: PRESENT: RRR. ABSENT: diastolic murmur, rubs, systolic murmur Pulses: PRESENT: normal dorsalis pedis pul Vascular exam: PRESENT: normal capillary refill GI/Abdominal exam: PRESENT: normal bowel sounds, soft. ABSENT: distended, guarding, mass, organolmegaly, rebound, tenderness Rectal exam: PRESENT: deferred Extremities exam: PRESENT: full ROM. ABSENT: calf tenderness, clubbing, pedal edema Neurological exam: PRESENT: alert, awake, oriented to person, oriented to place, oriented to time, oriented to situation, CN II-XII grossly intact. ABSENT: motor sensory deficit Psychiatric exam: PRESENT: appropriate affect, normal mood. ABSENT: homicidal ideation, suicidal ideation Skin exam: PRESENT: dry, intact, warm. ABSENT: cyanosis, rash Results Laboratory Results: 04/28/18 04:30 04/28/18 04:30 04/26/18 14:18 Sputum Gram Stain - Final 04/26/18 14:18 Sputum Sputum Culture - Final Group F Beta Streptococcus Normal Hoda 04/25/18 04/25/18 20:35 20:35 Troponin I < 0.012 NT-Pro-B Natriuret Pep 308 Qualifiers - * PATIENT BEING DISCHARGED WITH ANY OF THE FOLLOWING DIAGNOSIS: No
== END 2018-04-28 15:08 | disposition home or self-care (01) | DRG 189 ==
LOC: ER 19:58 → EH 22:42 → 3N 04-26 01:36
PROVIDERS: ADMIT Internal Medicine; ATTEND Internal Medicine
DX: J96.01 Acute respiratory failure with hypoxia (principal); J18.9 Pneumonia, unspecified organism; Z68.42 Body mass index [BMI] 45.0-49.9, adult; E11.9 Type 2 diabetes mellitus without complications; I10 Essential (primary) hypertension; E66.01 Morbid (severe) obesity due to excess calories; Z79.4 Long term (current) use of insulin; Z79.899 Other long term (current) drug therapy
CPT/HCPCS: 36415; 71045; 80048; 80053; 82962; 83605; 83880; 84484; 85025; 86710; 87040; 87070; 87077; 87205; 87804; 90686; 93005; 93010; 94640; 94668; 94799; 96365; 99284; J0360; J0456; J0696; J1644; J1815; J1940; J1956; J3490; J7620

== ENCOUNTER → 2018-11-04 | Outpatient (CLI) | payer OTHER ==
--- NOTE | 2018-11-04 08:35 | RADIOLOGY REPORT (SQ) ---
EXAM DESCRIPTION: KNEE BILAT AP UPRIGHT COMPLETED DATE/TIME: 11/04/2018 8:11 am REASON FOR STUDY: (M17.0)BILATERAL PRIMARY OSTEOARTHRITIS OF KNEE M17.0 BILATERAL PRIMARY OSTEOARTH RITIS OF KNEE COMPARISON: None. NUMBER OF VIEWS: One view. TECHNIQUE: AP standing bilateral knees. LIMITATIONS: None. FINDINGS: MINERALIZATION: Normal. RIGHT KNEE BONES: No acute fracture. No worrisome bone lesions. MEDIAL COMPARTMENT: Small osteophytes. Joint space narrowing. No chondrocalcinosis. LATERAL COMPARTMENT: No significant osteophytes. No joint space narrowing. No chondrocalcinosis. LEFT KNEE BONES: No acute fracture. No worrisome bone lesions. MEDIAL COMPARTMENT: No significant osteophytes. Joint space narrowing. No chondrocalcinosis. LATERAL COMPARTMENT: No significant osteophytes. No joint space narrowing. No chondrocalcinosis. IMPRESSION: Joint space narrowing in the medial compartments bilaterally left greater than right. TECHNICAL DOCUMENTATION: JOB ID: [id number] [employer]- All Rights Reserved Reading location - IP/workstation name: [email or web address]
== END ==
LOC: RAD 07:45
PROVIDERS: ATTEND Nurse Practitioner Psychiatric/Mental Health
DX: M17.0 Bilateral primary osteoarthritis of knee (principal)
CPT/HCPCS: 73565

== ENCOUNTER → 2018-11-04 | Outpatient (CLI) | payer OTHER ==
[2018-11-04 08:16] LABS: ALBUMIN 3.9 g/dL (3.5-5.0); ALKALINE PHOSPHATASE 52 U/L (38-126); ANION GAP 6 (5-19); ASPARTATE AMINO TRANSFERASE 15 U/L (14-36); BILIRUBIN,DIRECT 0.2 mg/dL (0.0-0.4); BILIRUBIN,TOTAL 0.8 mg/dL (0.2-1.3); BLOOD UREA NITROGEN 24 mg/dL (7-20); CALCIUM 9.2 mg/dL (8.4-10.2); CARBON DIOXIDE 30 mmol/L (22-30); CHLORIDE 106 mmol/L (98-107); CHOLESTEROL 219.55 mg/dL (0-200); GLUCOSE 169 mg/dL (75-110); POTASSIUM 5.1 mmol/L (3.6-5.0); TOTAL PROTEIN 6.8 g/dL (6.3-8.2); TRIGLYCERIDES 223 mg/dL (<150)
[2018-11-04 08:27] LABS: DIRECT LDL 158 mg/dL (<100)
[2018-11-04 08:31] LABS: VLDL CHOLESTEROL 44.6 mg/dL (10-31)
== END ==
LOC: CCC 07:34
DX: E11.9 Type 2 diabetes mellitus without complications (principal); I10 Essential (primary) hypertension; M17.0 Bilateral primary osteoarthritis of knee
CPT/HCPCS: 36415; 80053; 80061; 83036; 84443

== ENCOUNTER 2019-04-04 01:55 | Emergency (ER) | payer OTHER ==
[2019-04-04] MEDS ORDERED: PREDNISONE 20 MG TABLET PO ONE (06:15)
[2019-04-04] MEDS ORDERED: FAMOTIDINE 20 MG TABLET PO ONE (06:16)
--- NOTE | 2019-04-04 06:21 | ER Document Report ---
HPI - HPI Time Seen by Provider: 04/04/19 06:04 Pain Level: Denies Context: Patient is a 63-year-old female with a past medical history of diabetes and hypertension who presents the emergency department with a rash to bilateral inner arms. Patient states that she has been dealing with her rash for the past 2 weeks. She attempted to take Benadryl once, but did not have any relief of her symptoms. Patient denies any shortness of breath, difficulty breathing. She denies any new detergents, soaps, or lotions. - CONSTITUTIONAL Constitutional: DENIES: Fever, Chills - EENT EENT: DENIES: Sore Throat, Nasal Drainage-Clear, Nasal Drainage-Purulent - RESPIRATORY Respiratory: DENIES: Trouble Breathing, Coughing - GASTROINTESTINAL Gastrointestinal: DENIES: Abdominal Pain, Nausea, Patient vomiting - REPRODUCTIVE Reproductive: DENIES: : - MUSCULOSKELETAL Musculoskeletal: DENIES: Extremity pain, Back Pain, Neck Pain, Swelling - DERM Skin Color: Normal Skin Problems: Rash - Bilateral upper arms with pruritus Past Medical History - Social History Smoking Status: Never Smoker Chew tobacco use (# tins/day): No Frequency of alcohol use: None Drug Abuse: None Family History: Hypertension Patient has suicidal ideation: No Patient has homicidal ideation: No - Past Medical History Cardiac Medical History: Reports: Hx Hypercholesterolemia, Hx Hypertension Denies: Hx Coronary Artery Disease Endocrine Medical History: Reports: Hx Diabetes Mellitus Type 2 Renal/ Medical History: Denies: Hx Peritoneal Dialysis Psychiatric Medical History: Denies: Hx Depression Past Surgical History: Reports: Hx Section - x2, Hx Kidney (Renal Surgery) - Right nephrectomy for ruptured renal cyst - Immunizations Hx Diphtheria, Pertussis, Tetanus Vaccination: Yes Vertical Provider Document - CONSTITUTIONAL Agree With Documented VS: Yes Exam Limitations: No Limitations General Appearance: No Apparent Distress - INFECTION CONTROL TRAVEL OUTSIDE OF THE [place] IN LAST 30 DAYS: No - HEENT HEENT: Atraumatic, Normocephalic, PERRLA - NECK Neck: Normal Inspection - RESPIRATORY Respiratory: Breath Sounds Normal, No Respiratory Distress - CARDIOVASCULAR Cardiovascular: Regular Rate, Regular Rhythm Pulses: Normal: Radial - MUSCULOSKELETAL/EXTREMETIES Musculoskeletal/Extremeties: FROM - NEURO Level of Consciousness: Awake, Alert, Appropriate - DERM Integumentary: Warm, Dry, Rash - Bilateral sore aspect of arms. Course - Re-evaluation Re-evalutation: 04/04/19 06:19 Patient will be treated with prednisone. I instructed her to increase her insulin as needed. She also be started on Pepcid. I have a very low suspicion for necrotizing fasciitis, or any life-threatening etiology at this time. Follow-up precautions were given. Verbal discharge instructions were given to the patient. They verbalized understanding. They are stable for discharge. - Vital Signs Vital signs: Temp Pulse Resp BP Pulse Ox 98.3 F 68 20 172/108 H 96 04/04/19 05:31 04/04/19 05:31 04/04/19 05:31 04/04/19 05:31 04/04/19 05:31 Discharge - Discharge Clinical Impression: Rash Condition: Stable Disposition: HOME, SELF-CARE Additional Instructions: You were seen today in the emergency department for a rash. You are being started on steroids and Pepcid to help with your rash. Please make sure you take all your medications as prescribed. Please follow-up with your primary care provider in regards to this visit. You may need to increase your insulin, as you are being placed on steroids. If you have worsening symptoms, please return to the emergency department. Prescriptions: Prednisone [Deltasone 20 mg Tablet] 3 tab PO DAILY 4 Days #12 tablet Famotidine [Pepcid 20 mg Tablet] 20 mg PO BID #12 tablet Referrals: [facility] [Primary Care Provider] - Follow up in 3-5 days
[2019-04-04 06:58] VITALS: BP 165/84
== END 2019-04-04 06:57 | disposition home or self-care (01) ==
LOC: ER 01:55
DX: R21 Rash and other nonspecific skin eruption (principal); L29.8 Other pruritus; I10 Essential (primary) hypertension; E11.9 Type 2 diabetes mellitus without complications; Z79.4 Long term (current) use of insulin
CPT/HCPCS: 99282; J7512

== ENCOUNTER 2019-04-11 09:13 | Emergency (ER) | payer MEDICAID, OTHER ==
[2019-04-11 09:20] VITALS: BP 154/75
[2019-04-11] MEDS ORDERED: FLUOCINONIDE 0.05% CREAM 15 GM TP ONE (10:05)
--- NOTE | 2019-04-11 10:09 | ER Document Report ---
HPI - HPI Patient complains to provider of: Itchy rash Time Seen by Provider: 04/11/19 09:55 Onset: Other - 3 weeks Onset/Duration: Persistent Pain Level: Denies Context: This 63-year-old female history of diabetes presents emergency department with a rash to anterior arms and top of her thighs for the past 3 weeks. She denies new exposure to anything such as medications lotions detergents. Reports she was evaluated in this emergency department last week treated with steroids and Pepcid and still itching. She reports she wakes up at night itching. She denies fever vomiting diarrhea. Reports her glucose has been a little high but not bad. Patient reports no other family members with rash. Associated Symptoms: None Exacerbated by: Denies Relieved by: Denies Similar symptoms previously: Yes Recently seen / treated by doctor: Yes - REPRODUCTIVE Reproductive: DENIES: : Past Medical History - General Information source: Patient - Social History Smoking Status: Former Smoker Cigarette use (# per day): No Frequency of alcohol use: None Drug Abuse: None Lives with: Family Family History: Hypertension Patient has suicidal ideation: No Patient has homicidal ideation: No - Past Medical History Cardiac Medical History: Reports: Hx Hypercholesterolemia, Hx Hypertension Denies: Hx Coronary Artery Disease Endocrine Medical History: Reports: Hx Diabetes Mellitus Type 2 Renal/ Medical History: Denies: Hx Peritoneal Dialysis Psychiatric Medical History: Denies: Hx Depression Past Surgical History: Reports: Hx Section - x2, Hx Kidney (Renal Surgery) - Right nephrectomy for ruptured renal cyst - Immunizations Hx Diphtheria, Pertussis, Tetanus Vaccination: Yes Vertical Provider Document - CONSTITUTIONAL Agree With Documented VS: Yes Exam Limitations: No Limitations General Appearance: WD/WN, No Apparent Distress - INFECTION CONTROL TRAVEL OUTSIDE OF THE [place] IN LAST 30 DAYS: No - HEENT HEENT: Atraumatic, Normocephalic - NECK Neck: Supple - RESPIRATORY Respiratory: No Respiratory Distress - CARDIOVASCULAR Cardiovascular: Regular Rate - GI/ABDOMEN Gastrointestinal: Abdomen Soft, Abdomen Non-Tender - BACK Back: Normal Inspection - MUSCULOSKELETAL/EXTREMETIES Musculoskeletal/Extremeties: MAEW, FROM, Non-Tender - NEURO Level of Consciousness: Awake, Alert, Appropriate Motor/Sensory: No Motor Deficit - DERM Integumentary: Warm, Dry, Rash Adult Front & Back Diagram: 1 - Macular erythemic scattered rash to bilateral forearms. No pustules no open sores or wounds. No rash to the hands or the palms. No rash to her trunk or face. 2 - Rash Course - Re-evaluation Re-evalutation: 04/11/19 10:29 Patient presents to the emergency department with a rash to her bilateral forearms and the tops of her thighs. She denies exposure to anything new such as laundry detergent lotions medications. She denies fever vomiting diarrhea. She reports the rash is very itchy especially at night. She does not have any irritation between the webs of her fingers. Patient was treated recently with steroids and Pepcid. She reports did not relieve any of the itching. She will be treated today with Vistaril and topical steroid. She was instructed on importance of [facility] 1 week for recheck and referral to dermatology as indicated. She was cautioned not to itch her skin. She was instructed on signs and symptoms of infection. She verbalized understanding to all instructions. - Vital Signs Vital signs: Temp Pulse Resp BP Pulse Ox 98.3 F 82 24 H 154/75 H 95 04/11/19 09:18 04/11/19 09:18 04/11/19 09:18 04/11/19 09:18 04/11/19 09:18 Discharge - Discharge Clinical Impression: Dermatitis Condition: Stable Disposition: HOME, SELF-CARE Instructions: Atopic Dermatitis (Eczema) ([facility]), Behavioral Health Clinician, Topical Steroid Cream or Ointment ([facility]) Additional Instructions: *You have been treated for a rash, dermatitis * Apply thin layer to affected area 2 to 4 times daily *Take medication as prescribed for itching *Monitor your skin for signs of infection infection such as pain, pustules, redness, swelling, warmth *Avoid itching, wear gloves at night, avoid hot showers *Follow up with a primary care provider within 1 week for referral to dermatology as indicated *Return to ED for signs of infection, worsening condition, changes, needs Monitor your blood pressure. Your blood pressure was elevated today. This may be because you were anxious, in pain or because you need medication. It is important to follow up with your primary care provider for full evaluation. Prescriptions: Hydroxyzine Pamoate [Vistaril 25 mg Capsule] 25 mg PO TID PRN #20 capsule PRN Reason: Forms: Elevated Blood Pressure Referrals: [facility] [NO LOCAL MD] - Follow up in 3-5 days
== END 2019-04-11 10:38 | disposition home or self-care (01) ==
LOC: ER 09:13
DX: L30.9 Dermatitis, unspecified (principal); L29.9 Pruritus, unspecified; E78.00 Pure hypercholesterolemia, unspecified; I10 Essential (primary) hypertension; E11.9 Type 2 diabetes mellitus without complications
CPT/HCPCS: 99282; J3490

== ENCOUNTER → 2019-05-19 | Outpatient (CLI) | payer MEDICAID ==
--- NOTE | 2019-05-19 13:52 | WOMENS IMAGING REPORT ---
EXAM DESCRIPTION: BILAT SCREENING MAMMO W/CAD COMPLETED DATE/TIME: 05/19/2019 11:23 am REASON FOR STUDY: Z12.39 SCREENING MAMMO Z12.39 ENCOUNTER FOR [facility] SCREENING FOR MALIGNANT NEOPLASM OF COMPARISON: 2014 EXAM PARAMETERS: Standard craniocaudal and mediolateral oblique views of each breast recorded using digital acquisition. Read with the assistance of CAD. .[facility] - [employer] Version 9.2 LIMITATIONS: None. FINDINGS: No suspicious masses, suspicious calcifications or architectural distortion. No areas of c oncern. IMPRESSION: Negative MAMMOGRAM. BIRADS 1 BREAST DENSITY: a. The breasts are almost entirely fatty. BIRAD: ASSESSMENT: 1 NEGATIVE RECOMMENDATION: ROUTINE SCREENING COMMENT: The patient has been notified of the results by letter per MQSA requirements. Additional no tification policies are in place for contacting patient with suspicious or incomplete findings. Quality ID #[id number]: The [employer] recommends an annual screening mammogram for women aged 40 years or over. This facility utilizes a reminder system to ensure that all patients receive reminder letters, and/or direct phone calls for appointments. This includes reminders for routine scr eening mammograms, diagnostic mammograms, or other Breast Imaging Interventions when appropriate. Th is patient will be placed in the appropriate reminder system. TECHNICAL DOCUMENTATION: FINDING NUMBER: (1) ASSESSMENT: (1) JOB ID: [id number] 2010 [employer]- All Rights Reserved Reading location - IP/workstation name: [email or web address]
== END ==
LOC: WI 10:30
PROVIDERS: ATTEND Nurse Practitioner Family
DX: Z12.31 Encounter for screening mammogram for malignant neoplasm of breast (principal)
CPT/HCPCS: 77067

== ENCOUNTER → 2019-05-19 | Outpatient (CLI) | payer MEDICAID ==
--- NOTE | 2019-05-19 12:33 | RADIOLOGY REPORT (SQ) ---
EXAM DESCRIPTION: LUMBAR SPINE COMPLETE COMPLETED DATE/TIME: 05/19/2019 11:37 am REASON FOR STUDY: RADICULOPATHY, LUMBAR REGION M79.672 PAIN IN LEFT FOOT M54.16 RADICULOPATHY, LUM BAR REGION M79.671 PAIN IN RIGHT FOOT COMPARISON: None. NUMBER OF VIEWS: Five views including obliques. TECHNIQUE: AP, lateral, oblique, and sacral radiographic images acquired of the lumbar spine. LIMITATIONS: None. FINDINGS: MINERALIZATION: Normal. SEGMENTATION: Normal. No transitional anatomy. ALIGNMENT: There is mild scoliosis concavity toward the right. There is slight retrolisthesis of L5 on S1. VERTEBRAE: Maintained height. No fracture or worrisome bone lesion. DISCS: There is disc space narrowing at L5-S1. POSTERIOR ELEMENTS: Pedicles and facets are intact. No pars defect or posterior arch defects. HARDWARE: None in the spine. PARASPINAL SOFT TISSUES: Normal. PELVIS: Intact as visualized. No fractures or worrisome bone lesions. SI joints intact. OTHER: No other significant finding. IMPRESSION: 1. Mild scoliosis with concavity toward the right. 2. Slight retrolisthesis of L5 on S1. Disc space narrowing at L5-S1 with endplate sclerosis. TECHNICAL DOCUMENTATION: JOB ID: [id number] 2010 [employer]- All Rights Reserved Reading location - IP/workstation name: [email or web address]
--- NOTE | 2019-05-19 12:35 | RADIOLOGY REPORT (SQ) ---
EXAM DESCRIPTION: OS CALCIS/HEEL RIGHT COMPLETED DATE/TIME: 05/19/2019 11:37 am REASON FOR STUDY: PAIN IN RT FOOT M79.672 PAIN IN LEFT FOOT M54.16 RADICULOPATHY, LUMBAR REGION M7 9.671 PAIN IN RIGHT FOOT COMPARISON: None. NUMBER OF VIEWS: Two views. TECHNIQUE: Plantar and lateral images acquired of the right calcaneous. LIMITATIONS: None. FINDINGS: MINERALIZATION: Normal. BONES: No acute fracture or dislocation. No worrisome bone lesions. Prominent osteophyte at the inser tion site of the plantar aponeurosis. Small spur at the insertion site of the Achilles tendon. JOINTS: No erosions. No ashtyn-articular osteopenia. No chondrocalcinosis. SOFT TISSUES: No swelling. No calcifications. OTHER: No other significant finding. IMPRESSION: Small calcaneal spurs. No fracture. TECHNICAL DOCUMENTATION: JOB ID: [id number] 2010 [employer]- All Rights Reserved Reading location - IP/workstation name: [email or web address]
--- NOTE | 2019-05-19 12:35 | RADIOLOGY REPORT (SQ) ---
EXAM DESCRIPTION: OS CALCIS/HEEL LEFT COMPLETED DATE/TIME: 05/19/2019 11:37 am REASON FOR STUDY: PAIN IN LT FOOT M79.672 PAIN IN LEFT FOOT M54.16 RADICULOPATHY, LUMBAR REGION M7 9.671 PAIN IN RIGHT FOOT COMPARISON: None. NUMBER OF VIEWS: Two views. TECHNIQUE: Plantar and lateral images acquired of the left calcaneous. LIMITATIONS: None. FINDINGS: MINERALIZATION: Normal. BONES: No acute fracture or dislocation. No worrisome bone lesions. Small osteophytes at the insertio n site of the plantar aponeurosis and Achilles tendon. These are larger than noted on the right. JOINTS: No erosions. No ashtyn-articular osteopenia. No chondrocalcinosis. SOFT TISSUES: No swelling. No calcifications. OTHER: No other significant finding. IMPRESSION: Calcaneal spurs as described. TECHNICAL DOCUMENTATION: JOB ID: [id number] 2010 [employer]- All Rights Reserved Reading location - IP/workstation name: [email or web address]
== END ==
LOC: OD 11:17
PROVIDERS: ATTEND Nurse Practitioner Family
DX: M79.672 Pain in left foot (principal); M54.16 Radiculopathy, lumbar region; M79.671 Pain in right foot
CPT/HCPCS: 72110

== ENCOUNTER → 2019-09-01 | Outpatient (CLI) | payer MEDICAID ==
--- NOTE | 2019-09-01 14:31 | RADIOLOGY REPORT (SQ) ---
EXAM DESCRIPTION: U/S RETROPERITON (RENAL/AORTA) IMAGES COMPLETED DATE/TIME: 09/01/2019 1:28 pm REASON FOR STUDY: N18.4 CHRONIC KIDNEY DISEASE, STAGE 4 (SEVERE) N18.3 CHRONIC KIDNEY DISEASE, STAG E 3 (MODERATE) N18.4 CHRONIC KIDNEY DISEASE, STAGE 4 (SEVERE) COMPARISON: None. TECHNIQUE: Dynamic and static grayscale images acquired of the kidneys and bladder and recorded on P ACS. Additional selected color Doppler and spectral images recorded. LIMITATIONS: None. FINDINGS: RIGHT KIDNEY: Prior right nephrectomy. LEFT KIDNEY: The left kidney measures 13.2 x 6.1 x 6.2 cm, normal size. Normal echogenicity. A nono bstructing 5 x 3 x 1 mm calculus. BLADDER: The urinary bladder is incompletely distended. Bilateral ureteral jets are not visualized. OTHER FINDINGS: No other significant finding. IMPRESSION: 1. Prior right nephrectomy. 2. Nonobstructing left renal calculus. TECHNICAL DOCUMENTATION: JOB ID: [id number] 2010 [employer]- All Rights Reserved Reading location - IP/workstation name: [email or web address]
== END ==
LOC: RAD 12:11
PROVIDERS: ATTEND Physician Assistant Medical
DX: N18.4 Chronic kidney disease, stage 4 (severe) (principal); N20.0 Calculus of kidney
CPT/HCPCS: 76770

== ENCOUNTER → 2019-09-07 | Outpatient (CLI) | payer MEDICAID ==
[2019-09-07 15:45] LABS: ABSOLUTE EOSINOPHILS # (AUTO) 0.2 10^3/uL (0.0-0.6); ABSOLUTE LYMPHOCYTES (AUTO) 1.1 10^3/uL (0.5-4.7); ABSOLUTE MONOCYTES (AUTO) 0.5 10^3/uL (0.1-1.4); ABSOLUTE NEUT (AUTO) 3.9 10^3/uL (1.7-8.2); BASOPHILS % (AUTO) 0.5 % (0-2); EOSINOPHILS % (AUTO) 3.6 % (0-6); HEMATOCRIT 39.9 % (36.0-47.0); HEMOGLOBIN 13.5 g/dL (12.0-15.5); LYMPHOCYTES % (AUTO) 18.9 % (13-45); MEAN CORPUSCULAR HEMOGLOBIN 30.5 pg (27.0-33.4); MEAN CORPUSCULAR HGB CONC 33.9 g/dL (32.0-36.0); MEAN CORPUSCULAR VOLUME 90 fl (80-97); MONOCYTES % (AUTO) 8.1 % (3-13); PLATELET COUNT 193 10^3/uL (150-450); RED BLOOD COUNT 4.43 10^6/uL (3.72-5.28); RED CELL DISTRIBUTION WIDTH 13.1 % (11.5-14.0); SEGMENTED NEUTROPHILS % (AUTO) 68.9 % (42-78); TOTAL CELLS COUNTED % (AUTO) 100 %; WHITE BLOOD COUNT 5.7 10^3/uL (4.0-10.5)
[2019-09-07 16:02] LABS: ALBUMIN 4.1 g/dL (3.5-5.0); ANION GAP 7 (5-19); BLOOD UREA NITROGEN 24 mg/dL (7-20); CALCIUM 9.5 mg/dL (8.4-10.2); CARBON DIOXIDE 27 mmol/L (22-30); CHLORIDE 104 mmol/L (98-107); GLUCOSE 247 mg/dL (75-110); PHOSPHORUS 3.9 mg/dL (2.5-4.5); POTASSIUM 5.3 mmol/L (3.6-5.0)
[2019-09-07 17:43] LABS: APPEARANCE,URINE SLIGHTLY-CLOUDY; BILIRUBIN,URINE NEGATIVE (NEGATIVE); COLOR,URINE YELLOW; GLUCOSE, URINE 50 mg/dL (NEGATIVE); KETONES,URINE NEGATIVE (NEGATIVE); LEUKOCYTE ESTERASE,URINE TRACE (NEGATIVE); NITRITE,URINE NEGATIVE (NEGATIVE); PROTEIN,URINE NEGATIVE (NEGATIVE); URINE SPECIFIC GRAVITY 1.017; UROBILINOGEN,URINE NEGATIVE mg/dL (<2.0)
== END ==
LOC: OD 15:11
PROVIDERS: ATTEND Physician Assistant Medical
DX: I12.9 Hypertensive chronic kidney disease with stage 1 through stage 4 chronic kidney disease, or unspecified chronic kidney disease (principal); N18.4 Chronic kidney disease, stage 4 (severe); E11.22 Type 2 diabetes mellitus with diabetic chronic kidney disease; R80.9 Proteinuria, unspecified
CPT/HCPCS: 36415; 80069; 81001; 82043; 82570; 83970; 85025

== ENCOUNTER → 2019-12-29 | Outpatient (CLI) | payer MEDICAID | LOC: OD 15:55 | PROVIDERS: ATTEND Nurse Practitioner Family | DX: M79.10 Myalgia, unspecified site (principal) | CPT/HCPCS: 36415; 82550 ==